=== PATIENT | male | born 1955 | race Caucasian/White ===

== ENCOUNTER → 2023-08-02 | Outpatient (CLI) | payer MEDICARE, SELFPAY ==
--- NOTE | 2023-08-02 13:45 | RAD_ITS ---
EXAM: XR CHEST, 2 VIEWS CLINICAL INDICATION: HX OF PNEUMONIA TECHNIQUE: Frontal and lateral views of the chest. COMPARISON: No relevant prior studies available. FINDINGS: LUNGS AND PLEURAL SPACES: Right middle lobe and likely minimal lingular pulmonary opacity which may be atelectasis or pneumonia. No pneumothorax. No effusion. HEART: No significant abnormality. Cardiac silhouette not enlarged. MEDIASTINUM: Central airways and mediastinal contour are unremarkable. BONES/JOINTS: Left shoulder arthroplasty. SOFT TISSUES: No significant abnormality. RAD/Chest PA and Lateral IMPRESSION: Right middle lobe and likely minimal lingular pulmonary opacity which may be atelectasis or pneumonia. Electronically Signed: Hayden Mendieta DO at 20:15 EST ,
[2023-08-02 15:38] LABS: Erythrocyte Sedimentation Rate 33 mm/hr (0-20)
[2023-08-02 15:41] LABS: CRP < 2.90 mg/L (0.0-3.0)
[2023-08-07 06:07] LABS: Angiotensin Convert Enzyme 59 U/L (14-82); Immunoglobulin A 217 mg/dL (61-437); Immunoglobulin E 84 IU/mL (6-495); Immunoglobulin G 1185 mg/dL (603-1613); Immunoglobulin M 252 mg/dL (20-172)
== END | disposition home or self-care (01) ==
LOC: MTRAD 13:42
PROVIDERS: Referring Provider Internal Medicine Pulmonary Disease; Visit Provider Internal Medicine Pulmonary Disease
DX: J45.40 Moderate persistent asthma, uncomplicated (principal); Z87.01 Personal history of pneumonia (recurrent)
CPT/HCPCS: 36415; 71046; 82164; 82784; 82785; 85652; 86140

== ENCOUNTER → 2023-09-05 | Outpatient (CLI) | payer MEDICARE, SELFPAY ==
--- NOTE | 2023-09-05 18:56 | CT_ITS ---
INDICATION: sob EXAMINATION: CT CHEST WITHOUT CONTRAST - CT Chest W/O Contrast Injection TECHNIQUE: Helically acquired images were obtained of the chest. A radiation dose optimization technique was used for this scan. IV Contrast dosage and agent: None. COMPARISON: Chest x-ray 08/02/2023 FINDINGS: LUNGS, PLEURA AND LARGE AIRWAYS: Some right middle lobe of the atelectasis or scarring. Small ill-defined nodules and tubular densities in the left upper lobe consistent with bronchiolitis. Fewer smaller densities are seen in the right upper lobe. Some lingular subsegmental atelectasis. No pleural effusion or thickening. No pneumothorax. THYROID: No thyroid lesions. HEART AND PERICARDIUM: Cardiomegaly. Small pericardial effusion. CORONARY ARTERIES: Coronary artery calcification is seen. VESSELS: Thoracic aorta is not dilated. MEDIASTINUM AND LEXI: Calcified mediastinal or hilar lymphadenopathy consistent with prior granulomatous disease. Esophagus is unremarkable. No hiatal hernia. UPPER ABDOMEN: Small adenoma in the right adrenal gland. BONES: Degenerative disc disease of the thoracic spine. Status post left shoulder arthroplasty which produces streak artifact. CT/Chest without Contrast IMPRESSION: 1. Bilateral upper lobe of the pneumonitis and bronchiolitis, possibly from atypical pneumonia. 2. Right middle lobe atelectasis or scarring and lingular subsegmental atelectasis. 3. Cardiomegaly with small pericardial effusion. Electronically Signed: Pb Astudillo MD at 23:35 [facility] ,
== END | disposition home or self-care (01) ==
LOC: CT 18:53
PROVIDERS: Referring Provider Internal Medicine Pulmonary Disease; Visit Provider Internal Medicine Pulmonary Disease
DX: R05.9 Cough, unspecified (principal); R06.02 Shortness of breath
CPT/HCPCS: 71250